=== PATIENT | male | born 1955 | race Caucasian/White ===

== ENCOUNTER → 2016-11-25 | Outpatient (CLI) | payer MEDICARE, BC ==
--- NOTE | 2016-11-25 14:00 | RADIOLOGY REPORT (SQ) ---
EXAM DESCRIPTION: C SP 4 OR 5 VIEWS COMPLETED DATE/TIME: 11/25/2016 12:58 pm REASON FOR STUDY: CERVICALGIA M25.551 PAIN IN RIGHT HIP M54.2 CERVICALGIA COMPARISON: None. NUMBER OF VIEWS: Five views. TECHNIQUE: AP, lateral, obliques and odontoid radiographic images acquired of the cervical spine. LIMITATIONS: None. FINDINGS: MINERALIZATION: Osteopenic ALIGNMENT: There is very mild grade 1 anterolisthesis of C3 over C4, likely related to facet arthropa thy. VERTEBRAE: Vertebral bodies of normal height. DISCS: High-grade disc space loss of height with moderate anterior osteophyte formation at C4-5, C5-6 , C6-7. FORAMINA: There is bilateral moderate foraminal narrowing is present at C4-5, C5-6, and C6-7. LATERAL AND POSTERIOR ELEMENTS: Multilevel facet arthropathy. Pedicles and spinous processes are unr emarkable. HARDWARE: None in the spine. SOFT TISSUES: Surgical clips post right carotid endarterectomy. Left carotid bifurcation calcificati on. OTHER: No other significant finding. IMPRESSION: Multilevel degenerative disc changes with significant bilateral foraminal narrowing. TECHNICAL DOCUMENTATION: JOB ID: [id number] [email or web address]- All Rights Reserved
--- NOTE | 2016-11-25 14:05 | RADIOLOGY REPORT (SQ) ---
EXAM DESCRIPTION: HIP RIGHT AP/LATERAL COMPLETED DATE/TIME: 11/25/2016 12:58 pm REASON FOR STUDY: PAIN IN RIGHT HIP M25.551 PAIN IN RIGHT HIP M54.2 CERVICALGIA COMPARISON: MRI right thigh 11/28/2014 NUMBER OF VIEWS: Two views. TECHNIQUE: AP pelvis and additional frog-leg view of the right hip. LIMITATIONS: None. FINDINGS: MINERALIZATION: Osteopenic RIGHT HIP: The right greater trochanter is abnormal. There is demineralization, with faint periostea l new bone formation. A subacute upper greater trochanter fracture is suspected. There is some bony sclerosis in the anterior half of the right femoral neck, incomplete femoral neck fracture is suspec iram. MRI recommended for followup Right femoral neck, proximal diaphysis, femoral head intact. No significant hip joint space narrowin g. Osteophyte along the lateral aspect right acetabular roof. LEFT HIP: No fracture or dislocation. Well corticated avulsion fragment off the left greater trochan ter, chronic in appearance. Moderate left hip joint space narrowing with mild diffuse acetabular rim bony spurring. PUBIS AND ISCHIUM: No fracture. PELVIS: No fracture. SACRUM: No fracture or dislocation. Sclerosis right SI joint. Left SI joint unremarkable. LOWER LUMBAR SPINE: Disc space narrowing L4-5. SOFT TISSUES: No findings. OTHER: No other significant finding. IMPRESSION: Subacute greater trochanter fracture right proximal femur. Findings worrisome for fract ure extension into the femoral neck by plain film. MRI recommended for further evaluation. TECHNICAL DOCUMENTATION: JOB ID: [id number] [employer] All Rights Reserved
== END ==
LOC: OD 12:11
PROVIDERS: ATTEND Family Medicine
DX: M25.551 Pain in right hip (principal); M54.2 Cervicalgia; S72.111A Displaced fracture of greater trochanter of right femur, initial encounter for closed fracture; X58.XXXA Exposure to other specified factors, initial encounter
CPT/HCPCS: 72050

== ENCOUNTER → 2017-07-29 | Day surgery (SDC) | payer MEDICARE, BC ==
[~2017-07-29] MED LIST: BUPIVACAINE HCL 0.5 % INJ/PF 30 ML SDV ONE; LIDOCAINE 1% INJ-PF (10 MG/ML) 30 ML SDV ONE; LIDOCAINE 2% INJ (20 MG/ML) 20 ML MDV ONE; METHYLPREDNISOLONE ACETATE INJ 40 MG/1 ML ML ONE
--- NOTE | 2017-07-29 14:11 | Operative Report ---
PREOPERATIVE DIAGNOSIS: Sacroilitis POSTOPERATIVE DIAGNOSIS:Sacroilitis PROCEDURE: 1. Radiofrequency Ablation of [RT L5 Dorsal Ramus and [RT L4] medial branch 2. Sacroiliac Joint Ablation - Lateral Branches of [RT S1, S2, S3] DATE OF PROCEDURE:[ 07/29/17] ANESTHESIA: [local] COMPLICATIONS: [none ] CONSENT: A full description of the procedure was provided including benefits as well as possible complications. All questions were answered and informed consent was given and signed. ASA guidelines for fasting were verified prior to sedation. PROCEDURE IN DETAIL The patient was brought into the fluoroscopy suite and carefully assisted into the prone position on the fluoroscopy table and allowed to adjust to a position of comfort. A grounding pad was placed on the [LEFT] thigh. The low back and buttocks were widely prepped with a chloraprep solution, allowed to air dry and draped in standard sterile surgical fashion. Local anesthesia was provided by [ 1] mL of [1 ] % [ lidocaine] delivered with a 25 g needle. PROCEDURE #1: Radiofrequency Ablation of Dorsal Ramus of L5, medial branch of L4. A 17g 100mm radiofrequency introducer needle was placed to the planned anatomic target, guided with intermittent fluoroscopy with a perpendicular approach, to terminally place at the [RIGHT] sacral ala and the superior articular process at the transverse process for the RIGHT L4 medial branch nerve. The stylets were removed and the radiofrequency probes with a 4mm active tip were then inserted. Needle tip position of the probes were verified in the AP, oblique, and lateral views. At each site, the medial branch nerve was stimulated at 2Hz to a maximum of 1-2volts determined to finalize safe needle and electrode placement. The patient was awake and responsive during this portion of the procedure. Each target was anesthetized with 1-2mL of [2 ] %[lidocaine ] anesthesia for lesioning and then each target was lesioned at 80 degrees Celsius for 2 minutes and 30 seconds. Tissue impedences were noted to be between 250 and 500 Ohms. PROCEDURE #2: Radiofrequency Ablation of S1, S2, S3 Lateral Branches Using the AP fluoroscopic view for visualization of the lateral PSFA as defined by the pre-placed 27-gauge Quincke needles, appropriate skin starting positions were defined. Using the PSFA as a "clock-face", the positions were: S1; Right = 1 oclock, 3 oclock and 5 oclock S2; Right = 1 oclock, 3 oclock and 5 oclock S3; Right = 1 oclock, 5 oclock Using fluoroscopic guidance, a 17g introducer needle was inserted sequentially onto the target positions described above until the introducer tip touched the bony surface of the sacrum. The stylet was withdrawn from the introducer and the radiofrequency probe with a 4 mm active tip was fully inserted into the introducer. A lateral view was obtained for standard reference. At each of the targets, needle placement was verified with the use of multi-planar fluoroscopy. The needle tip position was approximately 7 - 10mm lateral to the PSFA as determined by using an Epsilon ruler. At each site, the lateral branch nerve was stimulated at 2 Hz to a maximum of 1- 2 volts determined to finalize safe needle and electrode placement. The patient was awake and responsive during this portion of the procedure. Each target was anesthetized with 1-2 mL of [ 2]% [lidocaine] anesthesia for lesioning and then each target was lesioned at 80 degrees Celsius for 2 minutes and 30 seconds. Tissue impedences were noted to be between 250- 500 Ohms. At the conclusion of the lesioning the needles were removed and bandages placed over the needle placement sites and the patient returned to the supine position on a stretcher and transported to the recovery room without hemodynamic, neurologic, or allergic reactions. Fluoroscopic images were printed for hard copy recording and digitally archived. FLUOROSCOPIC INTERPRETATION: Appropriate lesioning of the 10 targets noted. POST PROCEDURE EVALUATION: The patient was comfortable in the recovery room. The patient is aware that pain may worsen before remitting and 4 6 weeks may be required prior to the onset of pain relief. IMPRESSION: 1. Technically successful sacral lateral branch, lumbar dorsal ramus and L4 medial branch neurotomy for denervation from L4-S3 on the [RIGHT] without complication. 2. RTC in [4 ] weeks. 3. Estimated Blood Loss: [ 1cc] 4. Fluoroscopy time: [see nursing record)
== END ==
LOC: RAD 12:53
PROVIDERS: ATTEND Student in an Organized Health Care Education/Training Program
DX: M47.817 Spondylosis without myelopathy or radiculopathy, lumbosacral region (principal)
CPT/HCPCS: 64635 ×2; 64636; 64640 ×3; J3490 ×3; J1020

== ENCOUNTER → 2017-08-06 | Outpatient (CLI) | payer MEDICARE, BC ==
--- NOTE | 2017-08-06 13:13 | RADIOLOGY REPORT (SQ) ---
EXAM DESCRIPTION: CAROTID DOPPLER COMPLETED DATE/TIME: 08/06/2017 12:25 pm REASON FOR STUDY: CAROTID STENOSIS I65.23 OCCLUSION AND STENOSIS OF BILATERAL CAROTID ARTERIES R60. 0 LOCALIZED EDEMA COMPARISON: None. TECHNIQUE: Grayscale ultrasound, Doppler velocity and spectra, and color Doppler images acquired of the extra-cranial carotid and vertebral arteries. Images stored on PACS. LIMITATIONS: None. FINDINGS: RIGHT CAROTID CCA Velocities: Within normal limits. ICA Velocities Peak systolic 1.4 m/s. End diastolic 0.39 m/s. Proximal ICA/CCA peak systolic ratio 1.5. About 2 cm distal to the right carotid bifurcation, focal narrowing of the right cervical ICA is pres ent with mildly elevated velocities and turbulent flow. Velocities suggest 50 to 69% stenosis. This is likely at the distal aspect of patient's right carotid endarterectomy performed in 2008 LEFT CAROTID CCA Velocities: Within normal limits. ICA Velocities Peak systolic 1.3 m/s. End diastolic 0.33 m/s. Proximal ICA/CCA peak systolic ratio 1.2. Calcific shadowing plaque is present at the left carotid bifurcation. This obscures of the origin of the left internal carotid artery. Just distal to the shadowing plaque, velocities suggest 50 to 69% diameter left internal carotid artery narrowing. VERTEBRAL ARTERIES: Antegrade flow. Normal waveforms. SUBCLAVIAN ARTERIES: Not evaluated OTHER: No other significant finding. IMPRESSION: Bilateral 50 to 69% proximal ICA stenosis. Antegrade pulsatile vertebral artery flow bilaterally. COMMENT: Quality ID #[id number]: Velocity criteria are extrapolated from the diameter data as defined by t he Society of Radiologists in Ultrasound Consensus Conference. Radiology 2003: 229; 340-346. TECHNICAL DOCUMENTATION: JOB ID: [id number] [employer]- All Rights Reserved Reading location - IP/workstation name: [email or web address]
--- NOTE | 2017-08-06 21:54 | XCELERA REPORT ---
[address] [address] Transthoracic Echocardiogram Report Name: KALEB CARD Age: 62 yrs Gender: Male : 1955 Patient Status: Outpatient Patient Location: SP Study Date: 08/06/2017 11:03 AM Height: 75 in Weight: 283 lb BSA: 2.5 m2 Reason For Study: EDEMA Ordering Physician: KIRK SHEPPARD Performed By: Ranjan Moreno Interpretation Summary Poor study may be due to pt 283#, apical 2 chamber view suboptimal. LVEF visually normal. Mild AV sclerosis, no , no AR. Mild MAC, no MS, no MR, no LA enlargement. Borderline LVH, Normal LVEF visual, no Biplane LVEF drawn/measured. Not all LV segments seen, stage I LVDD, no LV enlargement. RVSP measurement not reliable, tech error. R heart poorly visualised. MMode/2D Measurements & Calculations RVDd: 3.5 cm LVIDd: 6.2 cmFS: 41.5 % Ao root diam: 3.3 cm IVSd: 0.96 cm LVIDs: 3.6 cmEDV(Teich): 190.8 ml LVPWd: 1.1 cmESV(Teich): 54.4 ml Ao root area: 8.8 cm2 EF(Teich): 71.5 % LA dimension: 3.7 cm LVOT diam: 2.4 cm LVOT area: 4.7 cm2 Doppler Measurements & Calculations MV E max brooke: MV P1/2t max rbooke: Ao V2 max: LV V1 max P.3 cm/sec 82.0 cm/sec 152.2 cm/sec 3.4 mmHg MV A max brooke: MV P1/2t: 68.3 msec Ao max PG: LV V1 max: 108.1 cm/sec MVA(P1/2t): 3.2 cm2 9.3 mmHg 92.3 cm/sec MV E/A: 0.89 MV dec slope: ISRRAEL(V,D): 2.8 cm2 351.8 cm/sec2 MV dec time: 0.23 sec TV V2 max: PA V2 max: 212.8 cm/sec 87.0 cm/sec TV max PG: PA max P.0 mmHg 18.1 mmHg Left Ventricle There is borderline concentric left ventricular hypertrophy. The left ventricular ejection fraction is normal. Doppler measurements suggest impaired left ventricular relaxation, which is associated with grade I/IV or mild diastolic dysfunction. Not all wall segments were well visualized. There is inferior wall moderate hypokinesis. There is no thrombus. Right Ventricle The right ventricle is normal in size, thickness and function. Atria The right atrium is normal. The left atrial size is normal. There is no Doppler evidence for an interatrial shunt. Mitral Valve The mitral valve leaflets are sclerotic, but show no functional abnormalities. There is mild mitral annular calcification. There is no evidence of mitral valve prolapse. There is no mitral valve stenosis. There is no mitral regurgitation noted. Aortic Valve The aortic valve is not well visualized secondary to technical limitations. The aortic valve is sclerotic and shows some degree of functional abnormality. Cannot exclude aortic valvular vegetation. There is no aortic valve stenosis. No aortic regurgitation is present. Tricuspid Valve The tricuspid valve is not well visualized secondary to technical limitations. No tricuspid regurgitation. Pulmonic Valve The pulmonic valve is not well visualized. There is no pulmonic valvular regurgitation. Great Vessels The aortic root is normal size. I WMSI = 1.36 % Normal = 64 Segments Size X - Cannot 1 - Normal 2 - 3 - Akinetic4 - 1-2 small Interpret Hypokinetic Dyskinetic 3-5 moderate 5 - 6-14 large Aneurysmal 15-16 diffuse : KIRK SHEPPARD > Yrn Ayala
== END ==
LOC: SP 10:27
PROVIDERS: ATTEND Family Medicine
DX: I65.23 Occlusion and stenosis of bilateral carotid arteries (principal); R60.0 Localized edema
CPT/HCPCS: 93306; 93880

== ENCOUNTER → 2017-08-26 | Outpatient (CLI) | payer MEDICARE, BC ==
--- NOTE | 2017-08-26 16:30 | RADIOLOGY REPORT (SQ) ---
EXAM DESCRIPTION: ARTERIAL LOWER EXTREM BILAT COMPLETED DATE/TIME: 08/26/2017 2:50 pm REASON FOR STUDY: BLE ABSENCE OF PULSE R09.89 OTH SYMPTOMS AND SIGNS INVOLVING THE CIRC AND RESP SY COMPARISON: None. TECHNIQUE: Dynamic and static almodovar scale and color images acquired of the lower extremity arteries. Additional selected spectral images recorded. ABIs recorded. LIMITATIONS: None. FINDINGS: RIGHT LEG: ABIS: Normal, over 1.0. INFLOW ARTERIES: Normal, no obstruction evident. FEMORAL ARTERIES:Multiphasic waveforms. Normal, no velocity elevation to suggest focal stenosis. Norm al color Doppler evaluation. No aneurysm. POPLITEAL ARTERY:Multiphasic waveforms. Normal, no velocity elevation to suggest focal stenosis. Norm al color Doppler evaluation. No aneurysm. PATENT TIBIOPERONEAL TRUNK AND 3 VESSEL RUNOFF: Yes, normal vessels. TBI: Not performed. OTHER: No other significant finding. LEFT LEG: ABIS: Normal, over 1.0. INFLOW ARTERIES: Normal, no obstruction evident. FEMORAL ARTERIES:Multiphasic waveforms. Normal, no velocity elevation to suggest focal stenosis. Norm al color Doppler evaluation. No aneurysm. POPLITEAL ARTERY:Multiphasic waveforms. Normal, no velocity elevation to suggest focal stenosis. Norm al color Doppler evaluation. No aneurysm. PATENT TIBIOPERONEAL TRUNK AND 3 VESSEL RUNOFF: Yes, normal vessels. TBI: Not performed. OTHER: No other significant finding. IMPRESSION: NORMAL BILATERAL LOWER EXTREMITY ARTERIAL DOPPLER WITH ABIs. COMMENT: [facility] NORMAL: Greater than 1.0 MINIMAL DISEASE: 0.9 to 1.0 CLAUDICATION: 0.5 to 0.9 SEVERE ARTERIAL DISEASE: Less than 0.5 [facility] NORMAL: Greater than 1.0 (1.2 If Heavy Calcifications) NORMAL TO MILD ISCHEMIA: 0.8 to 1.0 MODERATE ISCHEMIA: 0.4 to 0.8 SEVERE ISCHEMIA: Less than 0.4 TECHNICAL DOCUMENTATION: JOB ID: [id number] [employer]- All Rights Reserved Reading location - IP/workstation name: [email or web address]
== END ==
LOC: SP 12:58
PROVIDERS: ATTEND Surgery
DX: R09.89 Other specified symptoms and signs involving the circulatory and respiratory systems (principal)
CPT/HCPCS: 93925

== ENCOUNTER → 2019-03-23 | Day surgery (SDC) | payer MEDICARE, BC ==
--- NOTE | 2019-03-23 16:30 | Operative Report ---
PREOPERATIVE DIAGNOSIS: POSTOPERATIVE DIAGNOSIS: PROCEDURE: 1. Radiofrequency Ablation of [LTT L5] Dorsal Ramus and [LT L4] medial branch 2. Sacroiliac Joint Ablation - Lateral Branches of [LT S1, S2, S3] DATE OF PROCEDURE:[ 03/23/2019] ANESTHESIA: [local] COMPLICATIONS: [ none] CONSENT: A full description of the procedure was provided including benefits as well as possible complications. All questions were answered and informed consent was given and signed. ASA guidelines for fasting were verified prior to sedation. PROCEDURE IN DETAIL The patient was brought into the fluoroscopy suite and carefully assisted into the prone position on the fluoroscopy table and allowed to adjust to a position of comfort. A grounding pad was placed on the [LEFT] thigh. The low back and buttocks were widely prepped with a chloraprep solution, allowed to air dry and draped in standard sterile surgical fashion. Local anesthesia was provided by [ 1] mL of [ 1] % [lidocaine ] delivered with a 25 g needle. PROCEDURE #1: Radiofrequency Ablation of Dorsal Ramus of L5, medial branch of L4. A 17g 100mm radiofrequency introducer needle was placed to the planned anatomic target, guided with intermittent fluoroscopy with a perpendicular approach, to terminally place at the [LEFT] sacral ala and the superior articular process at the transverse process for the LEFT/ L4 medial branch nerve. The stylets were removed and the radiofrequency probes with a 4mm active tip were then inserted. Needle tip position of the probes were verified in the AP, oblique, and lateral views. At each site, the medial branch nerve was stimulated at 2Hz to a maximum of 1-2volts determined to finalize safe needle and electrode placement. The patient was awake and responsive during this portion of the procedure. Each target was anesthetized with 1-2mL of [ 2] %[ lidocaine] anesthesia for lesioning and then each target was lesioned at 80 degrees Celsius for 2 minutes and 30 seconds. Tissue impedences were noted to be between 250 and 500 Ohms. PROCEDURE #2: Radiofrequency Ablation of S1, S2, S3 Lateral Branches Using the AP fluoroscopic view for visualization of the lateral PSFA as defined by the pre-placed 27-gauge Quincke needles, appropriate skin starting positions were defined. Using the PSFA as a "clock-face", the positions were: S1; Left 9:30, 8, 6:30 S2; Left = 9:30, 8, 6:30 S3; Left = 9:30, 8, Using fluoroscopic guidance, a 17g introducer needle was inserted sequentially onto the target positions described above until the introducer tip touched the bony surface of the sacrum. The stylet was withdrawn from the introducer and the radiofrequency probe with a 4 mm active tip was fully inserted into the introducer. A lateral view was obtained for standard reference. At each of the targets, needle placement was verified with the use of multi-planar fluoroscopy. The needle tip position was approximately 7 - 10mm lateral to the PSFA as determined by using an Epsilon ruler. At each site, the lateral branch nerve was stimulated at 2 Hz to a maximum of 1- 2 volts determined to finalize safe needle and electrode placement. The patient was awake and responsive during this portion of the procedure. Each target was anesthetized with 1-2 mL of [2 ]% [lidocaine ] anesthesia for lesioning and then each target was lesioned at 80 degrees Celsius for 2 minutes and 30 seconds. Tissue impedences were noted to be between 250- 500 Ohms. At the conclusion of the lesioning the needles were removed and bandages placed over the needle placement sites and the patient returned to the supine position on a stretcher and transported to the recovery room without hemodynamic, neurologic, or allergic reactions. Fluoroscopic images were printed for hard copy recording and digitally archived. FLUOROSCOPIC INTERPRETATION: Appropriate epidurogram obtained. Appropriate lesioning of the 10 targets noted. POST PROCEDURE EVALUATION: The patient was comfortable in the recovery room. The patient is aware that pain may worsen before remitting and 4 6 weeks may be required prior to the onset of pain relief. IMPRESSION: 1. Technically successful sacral lateral branch, lumbar dorsal ramus and L4 medial branch neurotomy for denervation from L4-S3 on the LEFT without complication. 2. RTC in [ 6] weeks. 3. Estimated Blood Loss: [ 5cc] 4. Fluoroscopy time: [see nursing record ] seconds
== END ==
LOC: RAD 14:17
PROVIDERS: ATTEND Student in an Organized Health Care Education/Training Program
DX: M46.1 Sacroiliitis, not elsewhere classified (principal)
CPT/HCPCS: 64635 ×2; 64640 ×3; J3490 ×3; J1030

== ENCOUNTER → 2020-03-06 | Outpatient (CLI) | payer MEDICARE, BC ==
--- NOTE | 2020-03-07 11:47 | XCELERA REPORT ---
[address] [address] Transthoracic Echocardiogram Report Name: KALEB CARD Age: 64 yrs Gender: Male : 1955 Patient Status: Preadmit Patient Location: Study Date: 03/06/2020 03:23 PM Height: 73 in Weight: 245 lb BSA: 2.3 m2 Procedure: A two-dimensional transthoracic echocardiogram with color flow and Doppler was performed. The study was technically difficult with many images being suboptimal in quality. The study was technically limited with all images being suboptimal in quality. Reason For Study: ARRHYTHMIA History: ARRHYTHMIA. Ordering Physician: KIRK SHEPPARD Performed By: Elis Shin Interpretation Summary The left ventricle is normal in size. There is normal left ventricular wall thickness. LV EF is 60% Left ventricular systolic function is normal. Doppler measurements suggest impaired left ventricular relaxation, which is associated with grade I/IV or mild diastolic dysfunction The left ventricular wall motion is normal. Probably no ASD ,VSD,or PFO seen. The right atrium is normal. The left atrial size is normal. There is no evidence of mitral valve prolapse. There is no vegetation seen on the mitral valve. There is no mitral valve stenosis. There is a trace amount of mitral regurgitation There is no aortic valvular vegetation. There is no aortic valve stenosis No aortic regurgitation is present. There is a trace amount of tricuspid regurgitation Right ventricular systolic pressure is normal. RVSP is 19 to 24 mm of HG , with RA mean of 5 to 10. There is no pulmonic valvular stenosis. There is no pulmonic valvular regurgitation. The aortic root is normal size. The inferior vena cava appeared normal and decreased > 50% with respiration (RAP 5-10 mmHg) There is no pericardial effusion. MMode/2D Measurements & Calculations RVDd: 3.5 cm LVIDd: 5.5 cm FS: 28.1 % Ao root diam: 2.8 cm IVSd: 1.2 cm LVIDs: 4.0 cm EDV(Teich): 147.3 ml Ao root area: 6.3 cm2 LVPWd: 1.1 cm ESV(Teich): 68.0 ml EF(Teich): 53.8 % Doppler Measurements & Calculations MV E max brooke: MV dec slope: Ao V2 max: LV V1 max P.9 cm/sec 514.7 cm/sec2 132.3 cm/sec 2.9 mmHg MV A max brooke: MV dec time: 0.16 secAo max PG: LV V1 max: 93.6 cm/sec 7.0 mmHg 85.8 cm/sec MV E/A: 0.85 PA V2 max: TR max brooke: 65.9 cm/sec 188.0 cm/sec PA max P.7 mmHg TR max P.1 mmHg Left Ventricle The left ventricle is normal in size. There is normal left ventricular wall thickness. LV EF is 60%. Left ventricular systolic function is normal. Doppler measurements suggest impaired left ventricular relaxation, which is associated with grade I/IV or mild diastolic dysfunction. The left ventricular wall motion is normal. Probably no ASD ,VSD,or PFO seen. Right Ventricle The right ventricle is normal in size and function. Atria The right atrium is normal. The left atrial size is normal. Mitral Valve There is no evidence of mitral valve prolapse. There is no vegetation seen on the mitral valve. There is no mitral valve stenosis. There is a trace amount of mitral regurgitation. Aortic Valve There is no aortic valvular vegetation. There is no aortic valve stenosis. No aortic regurgitation is present. Tricuspid Valve There is no tricuspid stenosis. There is a trace amount of tricuspid regurgitation. Right ventricular systolic pressure is normal. RVSP is 19 to 24 mm of HG , with RA mean of 5 to 10. Pulmonic Valve There is no pulmonic valvular stenosis. There is no pulmonic valvular regurgitation. Great Vessels The aortic root is normal size. The inferior vena cava appeared normal and decreased > 50% with respiration (RAP 5-10 mmHg). Effusions There is no pericardial effusion. : KIRK SHEPPARD Lakshmi
== END ==
LOC: SP 16:29
PROVIDERS: ATTEND Family Medicine
DX: R00.2 Palpitations (principal); I49.9 Cardiac arrhythmia, unspecified; I07.1 Rheumatic tricuspid insufficiency
CPT/HCPCS: 93306